=== PATIENT | male | born 1995 | race Two or more races ===

== ENCOUNTER 2017-01-27 05:49 | Emergency (ER) | payer BC ==
[~2017-01-27] VITALS: Ht 177.8 cm; Wt 61.2 kg
[2017-01-27 07:44] VITALS: BP 132/92
[2017-01-27] MEDS ORDERED: ONDANSETRON HCL 4 MG/2 ML VIAL IM ONE (08:00)
[2017-01-27] MEDS ORDERED: HYDROmorphone HCL 2 MG/ML VL IM ONE (08:00)
== END 2017-01-27 10:17 | disposition home or self-care (01) ==
LOC: ER 05:56
DX: S43.005A Unspecified dislocation of left shoulder joint, initial encounter (principal); M24.412 Recurrent dislocation, left shoulder; Z88.0 Allergy status to penicillin
CPT/HCPCS: 23650; 73030; 99285; J1170; J2405

== ENCOUNTER 2017-06-25 01:42 | Emergency (ER) | payer BC, MEDICAID ==
[~2017-06-25] VITALS: Ht 172.7 cm; Wt 64.9 kg
== END 2017-06-25 02:07 | disposition left against medical advice (07) ==
LOC: ER 01:44
DX: Z76.1 Encounter for health supervision and care of foundling (principal); Z02.89 Encounter for other administrative examinations; Z53.21 Procedure and treatment not carried out due to patient leaving prior to being seen by health care provider

== ENCOUNTER 2017-09-14 20:56 | Emergency (ER) | payer BC ==
[~2017-09-14] VITALS: Ht 175.3 cm; Wt 61.2 kg
[2017-09-14] MEDS ORDERED: ALBUTEROL SULF 2.5 MG/0.5ML(0.5%) NEB SOLN NEB ONE (21:00)
[2017-09-14] MEDS ORDERED: IPRATROPIUM BROM 0.5 MG/2.5ML INH SOL NEB ONE (21:00)
[2017-09-14 21:01] VITALS: BP 130/74
== END 2017-09-14 21:45 | disposition left against medical advice (07) ==
LOC: ER 20:58
DX: J45.909 Unspecified asthma, uncomplicated (principal); Z53.21 Procedure and treatment not carried out due to patient leaving prior to being seen by health care provider
CPT/HCPCS: 94640

== ENCOUNTER 2017-10-24 15:14 | Emergency (ER) | payer BC ==
[~2017-10-24] VITALS: Ht 172.7 cm; Wt 65.8 kg
[2017-10-24 15:52] LABS: Basophils # (auto) 0.1 uL; Eosinophils # (auto) 0.1 uL; Eosinophils % (auto) 1.2 % (0.0-7.0); Hemoglobin 17.5 g/dL (13.5-17.5); Lymphocytes # (auto) 1.3 uL; Lymphocytes % (auto) 12.7 % (10.0-50.0); Mean Corpuscular Hemoglobin 31.7 pg (28.0-32.0); Mean Corpuscular Volume 90.6 fL (80.0-100.0); Mean Platelet Volume 7.4 fL (6.9-10.8); Monocytes # (auto) 0.8 uL; Monocytes % (auto) 7.7 % (0.0-12.0); Neutrophils # (auto) 7.8 uL; Neutrophils % (auto) 77.4 % (37.0-80.0); Nucleated Red Blood Cells % 0.1 %; Platelet Count (auto) 217 10^3/uL (140-450); Red Cell Distribution Width 12.7 % (11.8-14.3); White Blood Cell 10.1 10^3/uL (4.4-10.8)
[2017-10-24 16:14] LABS: Albumin 4.5 g/dL (3.4-5.0); BUN/Creatinine Ratio 11.1; Bilirubin, Total 0.6 mg/dL (0.2-1.0); Calcium 9.2 mg/dL (8.5-10.1); Potassium 3.9 mmol/L (3.5-5.1); Total Protein 8.4 g/dL (6.4-8.2)
[2017-10-24] MEDS ORDERED: ONDANSETRON HCL 4 MG/2 ML VIAL IV ONE (16:30)
[2017-10-24] MEDS ORDERED: MORPHINE SULF INJ 2 MG/ML SYRINGE 1ML IV ONE (16:30)
[2017-10-24] MEDS ORDERED: SODIUM CHLORIDE 0.9% 1,000 ML IV ONE (17:00)
[2017-10-24 19:59] VITALS: BP 145/76
== END 2017-10-24 22:27 | disposition left against medical advice (07) ==
LOC: EDBD 15:14 → ER 15:24
DX: S42.292G Other displaced fracture of upper end of left humerus, subsequent encounter for fracture with delayed healing (principal); X58.XXXD Exposure to other specified factors, subsequent encounter
CPT/HCPCS: 36415; 70450; 73030; 80053; 85025; 96361; 96374; 96375; 99285; J2270; J2405; J7030

== ENCOUNTER 2018-01-29 13:51 | Emergency (ER) | payer BC, MEDICAID ==
[~2018-01-29] VITALS: Ht 170.2 cm; Wt 65.8 kg
[2018-01-29] MEDS ORDERED: KETOROLAC TROMETH 30 MG/ML 1ML VIAL IV ONE (18:15)
[2018-01-29] MEDS ORDERED: PROMETHAZINE HCL 25 MG/ML 1ML IV ONE (18:15)
[2018-01-29 21:41] VITALS: BP 156/82
== END 2018-01-29 21:52 | disposition home or self-care (01) ==
LOC: ER 13:51
DX: S43.015A Anterior dislocation of left humerus, initial encounter (principal); G40.909 Epilepsy, unspecified, not intractable, without status epilepticus; Z88.0 Allergy status to penicillin; W19.XXXA Unspecified fall, initial encounter; Y93.89 Activity, other specified; Y99.8 Other external cause status; Y92.89 Other specified places as the place of occurrence of the external cause
CPT/HCPCS: 73020; 73030; 96374; 96375; 99284; J1885; J2550